=== PATIENT | female | born 1945 | race Caucasian/White ===

== ENCOUNTER → 2018-03-26 | Outpatient (CLI) | payer MEDICARE ==
--- NOTE | 2018-03-26 13:35 | XR ---
EXAMINATION TYPE: XR chest 2V DATE OF EXAM: 03/26/2018 COMPARISON: NONE HISTORY: Cough TECHNIQUE: Frontal and lateral views of the chest are obtained. FINDINGS: There is no focal air space opacity, pleural effusion, or pneumothorax seen. The cardiac silhouette size is within normal limits. The osseous structures are intact, there is mild spinal cu rvature. Prominent lung volume may be indicative of underlying COPD. The aorta is dense. IMPRESSION: No acute cardiopulmonary process.
== END | disposition home or self-care (01) ==
LOC: RADXRYALE 10:36
PROVIDERS: ATTEND Otolaryngology
DX: R05 Cough (principal)
CPT/HCPCS: 71046

== ENCOUNTER → 2018-04-05 | Outpatient (CLI) | payer MEDICARE ==
--- NOTE | 2018-04-05 13:30 | US ---
EXAMINATION TYPE: US thyroid st tissue head/neck DATE OF EXAM: 04/05/2018 COMPARISON: US CLINICAL HISTORY: E04.1 Thyroid Nodule; left thyroidectomy approximately 10 years prior GLAND SIZE: Right Lobe: 4.2 x 1.6 x 1.7 cm Overall Parenchyma: heterogenous Isthmus Thickness: 0.2 cm NODULES RIGHT: # of nodules measured on right: 2 discrete nodules 1. 0.7 x 0.7 x 0.4 cm hyperechoic solid nodule at the upper pole with well-defined margins. This no dule is wider than tall and shows no intranodular vascularity. Prior size: none measured 2. 0.4 X 0.4 x 0.3 cm hypoechoic mixed nodule at the lower pole with well-defined margins. This nod ule is wider than tall and shows no intranodular vascularity. ISTHMUS: # of nodules measured in the isthmus: 0 Bilateral neck scanned, no evidence of lymphadenopathy. IMPRESSION: Despite diffuse heterogeneity of the right thyroid gland there are 2 new focal measurable subcentimeter thyroid nodules measuring up to 7 mm for which surveillance is recommended. No local a denopathy is seen or residual thymic tissue within the left thyroid postsurgical bed.
== END | disposition home or self-care (01) ==
LOC: RADUSWWP 12:05
PROVIDERS: ATTEND Otolaryngology
DX: E04.2 Nontoxic multinodular goiter (principal); R05 Cough
CPT/HCPCS: 76536

== ENCOUNTER → 2019-08-08 | Outpatient (CLI) | payer MEDICARE ==
--- NOTE | 2019-08-08 15:46 | US ---
EXAMINATION TYPE: US thyroid st tissue head/neck DATE OF EXAM: 08/08/2019 COMPARISON: US 04/05/18 CLINICAL HISTORY: E04.1 THYROID NODULE. Follow up thyroid nodules, history of left thyroidectomy. on thyroid meds. GLAND SIZE: Right Lobe: 4.8 x 1.7 x 1.9 cm Overall Parenchyma: heterogenous Left Lobe: surgically absent NODULES RIGHT: # of nodules measured on right: 3 1. 0.9 X 0.5 x 0.8 cm hyperechoic solid nodule at the upper pole with well-defined margins. This no dule is wider than tall and shows no intranodular vascularity. Prior size: 0.7 x 0.7 x 0.4 cm 2. 0.5 X 0.2 x 0.5 cm hypoechoic mixed nodule at the mid pole with well-defined margins. This nodule is wider than tall and shows intranodular vascularity. Prior size: 0.4 x 0.4 x 0.3 cm 3. 0.6 X 0.4 x 0.5 cm hypoechoic mixed nodule at the lower pole with well-defined margins. This nodu le is wider than tall and shows intranodular vascularity. Prior size: no previous Bilateral neck scanned, no evidence of lymphadenopathy. IMPRESSION: 1. Very minimal interval growth of the most dominant right thyroid nodule although thyroid nodules re main subcentimeter. Solitary new subcentimeter right thyroid nodule is seen. Follow-up thyroid ultras ound is recommended in 12 months. 2. Surgical absence of the left thyroid lobe.
== END | disposition home or self-care (01) ==
LOC: RADUSWWP 15:14
PROVIDERS: ATTEND Internal Medicine
DX: E04.1 Nontoxic single thyroid nodule (principal); E89.0 Postprocedural hypothyroidism
CPT/HCPCS: 76536

== ENCOUNTER → 2020-04-23 | Outpatient (CLI) | payer MEDICARE ==
--- NOTE | 2020-04-23 12:37 | XR ---
EXAMINATION TYPE: XR knee complete LT DATE OF EXAM: 04/23/2020 COMPARISON: NONE HISTORY: Pain TECHNIQUE: Three views are submitted. FINDINGS: Diffuse osteopenia with arthropathy knee joint along the medial compartment with hypertrophic spurrin g. Vascular calcification. No acute fracture. Spurring along the upper margin of the patella. Osseous structures are intact. No acute fracture seen. IMPRESSION: 1. No acute fracture or dislocation. 2. Diffuse osteopenia and arthropathy.
== END ==
LOC: RADXRYALE 11:46
PROVIDERS: ATTEND Internal Medicine
DX: M85.862 Other specified disorders of bone density and structure, left lower leg (principal)